=== PATIENT | female | born 1955 | race Caucasian/White ===

== ENCOUNTER 2016-05-12 18:57 | Inpatient (IN) | payer MEDICARE, MEDICAID ==
[2016-05-12] MEDS ORDERED: Ondansetron 4 MG/2 ML SDV IVPUSH ONE (20:06)
[2016-05-12] MEDS ORDERED: Sodium Chloride 0.9% 1,000 ML IV SCH ×2 (20:15→21:45)
[2016-05-12] MEDS ORDERED: Sodium Chloride 0.9% 10 ML Syringe FLUSH ONE (21:44)
[2016-05-12] MEDS ORDERED: Iopamidol 612 MG/ML 150 ML Bottle IV PRN (21:44)
[2016-05-12] MEDS ORDERED: Sodium Chloride 0.9% 80 ML IV SCH (21:45)
--- NOTE | 2016-05-12 23:50 | EDM.PDOC ---
ED HPI GI/ABDOMINAL - General Chief Complaint: Gastrointestinal Problem Stated Complaint: NOT FEELING WELL Time Seen by Provider: 05/12/16 23:00 Source: Reports: Patient, Family History Limitations: Reports: No limitations - History of Present Illness INITIAL COMMENTS - FREE TEXT/NARRATIVE: pt has been vomiting some dark material and she seemes distended in the abdoman. She has a temp of 102. Timing/Duration: Reports: Hour(s):, Getting worse Location: generalized Associated Symptoms (-Female): Reports: fever/chills, nausea/vomiting - Related Data Allergies/ADRs: Allergies Allergy/AdvReac Type Severity Reaction Status Date / Time haloperidol lactate Allergy Unknown unknown Verified 05/12/16 20:05 [From Haldol] simvastatin [From Zocor] Allergy Unknown unknown Verified 05/12/16 20:05 *dust Allergy Unknown Facial Uncoded 05/12/16 20:05 Swelling cats Allergy Unknown Facial Uncoded 05/12/16 20:05 Swelling Home Meds: Home Meds Atenolol [Tenormin] 50 mg PO DAILY 11/25/12 [History] Levothyroxine 112 mcg PO ACBRK 11/25/12 [History] Lovastatin [Mevacor] 40 mg PO BEDTIME 11/25/12 [History] Multivitamin [Multivitamins] 1 tab PO DAILY 11/25/12 [History] Trihexyphenidyl [Artane] 5 mg PO BID 11/25/12 [History] traMADol HCl [Ultram] 50 mg PO Q6H PRN 11/25/12 [History] Acetaminophen [Tylenol] 650 mg PO Q4H PRN 04/12/15 [History] Esomeprazole [NexIUM] 40 mg PO BID 04/12/15 [History] [place] Carbonate 300 mg PO DAILY 04/12/15 [History] Ondansetron [Zofran ODT] 4 mg PO Q4H PRN 04/12/15 [History] buPROPion HCl [Wellbutrin Xl] 300 mg PO DAILY 04/12/15 [History] Oxybutynin 5 mg PO BID 11/02/15 [History] traZODone HCl [Trazodone HCl] 50 mg PO BEDTIME 11/29/15 [History] Warfarin [Coumadin] 7.5 mg PO ASDIRECTED 12/02/15 [History] Warfarin [Coumadin] 10 mg PO ASDIRECTED 12/02/15 [History] Sennosides [Senna] 2 tab PO DAILY 12/14/15 [History] Benztropine Mesylate 1 mg PO BEDTIME 05/12/16 [History] buPROPion [Wellbutrin XL] 150 mg PO DAILY 05/12/16 [History] risperiDONE [Risperdal] 2 mg PO BID 05/12/16 [History] Past Medical History HEENT History: Reports: Hard of hearing, Impaired vision Cardiovascular History: Reports: High cholesterol, Hypertension Respiratory History: Reports: Asthma, PE Gastrointestinal History: Reports: Bowel obstruction, Cholelithiasis, GERD 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: , 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) Other OB/BYN History: uterine cancer 2 years ago, breast biopsy (cyst) Musculoskeletal History: Reports: Arthritis, Osteoarthritis Neurological History: Reports: Seizure, TIA Psychiatric History: Reports: Bipolar, Depression Other Psychiatric History: adjustment disorder Endocrine/Metabolic History: Reports: Hypothyroidism Hematologic History: Reports: Anemia, Blood transfusion(s) Oncologic (Cancer) History: Reports: Uterine Other Oncologic History: endometrial adenocarcinoma Dermatologic History: Reports: Psoriasis - Infectious Disease History Infectious Disease History: Reports: Chicken pox - Past Surgical History GI Surgical History: Reports: Hernia repair/other, Lysis of adhesions, Other ( see below) Other GI Surgeries/Procedures: release of SBO Female Surgical History: Reports: Hysterectomy Oncologic Surgical History: Reports: Biopsy of breast Social & Family History - Family History Family Medical History: Noncontributory - Tobacco Use Smoking Status *Q: Unknown Ever Smoked Years of Tobacco use: 12 Used Tobacco, but Quit: Yes Month Tobacco Last Used: 20 Second Hand Smoke Exposure: No - Caffeine Use Caffeine Use: Reports: Coffee Other Caffeine Use: 3 cans per day - Alcohol Use Days Per Week of Alcohol Use: 0 Number of Drinks Per Day: 1 Total Drinks Per Week: 0 - Recreational Drug Use Recreational Drug Use: No - Living Situation & Occupation Living situation: Reports: assisted living (Memory Care Unit) ED [facility] - Review of Systems Review Of Systems: See Below Constitutional: Reports: fever, chills, weakness HEENT: Reports: No symptoms Respiratory: Reports: No Symptoms Cardiovascular: Reports: No symptoms Endocrine: Reports: no symptoms GI/Abdominal: Reports: Abdominal pain, Distension, Nausea, Vomiting : Reports: no symptoms Musculoskeletal: Reports: no symptoms Skin: Reports: no symptoms ED EXAM, GI/ABD - Physical Exam Exam: See Below Text/Narrative:: Pt arrived with a temp and she has been vomiting some dark colored material. Exam Limited By: Other (Pt is not able to give a good history.) General Appearance: alert, anxious Ears: normal TMs Nose: normal inspection Throat/Mouth: Normal inspection Head: atraumatic Neck: normal inspection Respiratory/Chest: no respiratory distress Cardiovascular: regular rate, rhythm GI/Abdominal: tenderness, distention, other ( abdoman is definitely distended. ) (Female) Exam: Normal external exam Rectal (Female) Exam: Deferred Extremities: normal inspection Neurological: alert, other (pt is normally not able to give any acurate history. She lives in a [place] [facility]. ) Psychiatric: flat affect Course - Vital Signs Last Recorded V/S: Last Vital Signs Temp 37.5 C 05/12/16 22:39 Pulse 57 L 05/12/16 22:39 Resp 16 05/12/16 22:39 BP 153/100 H 05/12/16 22:39 Pulse Ox 99 05/12/16 22:39 - Orders/Labs/Meds Orders: Active Orders 24 hr Category Date Time Status Abdomen Pelvis w Cont [CT] Stat Exams 05/12/16 21:38 Taken Abdomen Series w Chest 1V [CR] Stat Exams 05/12/16 19:57 Taken OCCULT BLOOD, GASTRIC [OP] Stat Lab 05/12/16 21:41 Uncollected Iopamidol [Isovue-300 (61%)] Med 05/12/16 21:44 Active 133 ml IV . DIRECTED PRN Sodium Chloride 0.9% [Normal Saline] 1,000 ml Med 05/12/16 20:15 Active IV ASDIRECTED Sodium Chloride 0.9% [Normal Saline] 1,000 ml Med 05/12/16 21:45 Active IV ASDIRECTED Sodium Chloride 0.9% [Normal Saline] 80 ml Med 05/12/16 21:45 Active IV ASDIRECTED NG [Nasogastric Orogastric Tube Insertion] [OM.PC] Oth 05/12/16 21:40 Ordered Routine Medication Orders Sodium Chloride (Normal Saline) 1,000 mls @ 999 mls/hr IV ASDIRECTED KATIE Last Admin: 05/12/16 20:15 Dose: 999 mls/hr Sodium Chloride (Normal Saline) 1,000 mls @ 500 mls/hr IV ASDIRECTED KATIE Last Admin: 05/12/16 21:52 Dose: 500 mls/hr Sodium Chloride (Normal Saline) 80 mls @ 3.5 mls/sec IV ASDIRECTED KATIE Last Admin: 05/12/16 22:05 Dose: 3.5 mls/sec Acetaminophen 1,000 mg/ Premix 100 mls @ 400 mls/hr IV Q6H PRN PRN Reason: Pain Stop: 05/14/16 00:33 Last Admin: 05/13/16 01:06 Dose: 400 mls/hr Sodium Chloride (Normal Saline) 1,000 mls @ 200 mls/hr IV ASDIRECTED KATIE Last Admin: 05/13/16 00:15 Dose: 200 mls/hr Iopamidol (Isovue-300 (61%)) 133 ml IV . DIRECTED PRN PRN Reason: RADIOLOGY EXAM Stop: 05/13/16 21:45 Last Admin: 05/12/16 22:04 Dose: 132 ml Ondansetron HCl (Zofran) 4 mg IVPUSH Q4H PRN PRN Reason: Nausea/Vomiting Last Admin: 05/13/16 01:05 Dose: 4 mg Labs: Laboratory Tests 05/12/16 05/12/16 05/12/16 Range/Units 19:57 20:03 20:03 WBC 15.8 H (4.5-11.0) K/uL RBC 4.34 (3.30-5.50) M/uL Hgb 13.7 (12.0-15.0) g/dL Hct 41.3 (36.0-48.0) % MCV 95 (80-98) fL MCH 32 H (27-31) pg MCHC 33 (32-36) % Plt Count 287 (150-400) K/uL Neut % (Auto) 84 H (36-66) % Lymph % (Auto) 6 L (24-44) % [place] % (Auto) 10 H (2-6) % Eos % (Auto) 0 L (2-4) % Baso % (Auto) 0 (0-1) % Sodium 142 (140-148) mmol/L Potassium 3.7 (3.6-5.2) mmol/L Chloride 106 (100-108) mmol/L Carbon Dioxide 27 (21-32) mmol/L Anion Gap 9.1 (5.0-14.0) mmol/L BUN 42 H D (7-18) mg/dL Creatinine 1.1 H (0.6-1.0) mg/dL Est Cr Clr Drug Dosing TNP Estimated GFR (MDRD) 51 L (>60) Glucose 111 H (74-106) mg/dL Calcium 8.3 L (8.5-10.1) mg/dL Total Bilirubin 0.5 (0.2-1.0) mg/dL AST 22 (15-37) U/L ALT 22 D (12-78) U/L Alkaline Phosphatase 63 (46-116) U/L C-Reactive Protein 0.12 (0.0-0.3) mg/dL Total Protein 6.3 L (6.4-8.2) g/dL Albumin 3.4 (3.4-5.0) g/dL Globulin 2.9 (2.3-3.5) g/dL Albumin/Globulin Ratio 1.2 (1.2-2.2) Meds: Medications Generic Name Dose Route Start Last Admin Trade Name Freq PRN Reason Stop Dose Admin Sodium Chloride 1,000 mls @ 999 mls/hr 05/12/16 20:15 05/12/16 20:15 Normal Saline IV 999 mls/hr ASDIRECTED KATIE Administration Sodium Chloride 1,000 mls @ 500 mls/hr 05/12/16 21:45 05/12/16 21:52 Normal Saline IV 500 mls/hr ASDIRECTED KATIE Administration Sodium Chloride 80 mls @ 3.5 mls/sec 05/12/16 21:45 05/12/16 22:05 Normal Saline IV 3.5 mls/sec ASDIRECTED KATIE Administration Acetaminophen 1,000 mg/ Premix 100 mls @ 400 mls/hr 05/13/16 00:32 05/13/16 01:06 IV 05/14/16 00:33 400 mls/hr Q6H PRN Administration Pain Sodium Chloride 1,000 mls @ 200 mls/hr 05/13/16 00:45 05/13/16 00:15 Normal Saline IV 200 mls/hr ASDIRECTED KATIE Administration Iopamidol 133 ml 05/12/16 21:44 05/12/16 22:04 Isovue-300 (61%) IV 05/13/16 21:45 132 ml . DIRECTED PRN Administration RADIOLOGY EXAM Ondansetron HCl 4 mg 05/13/16 00:32 05/13/16 01:05 Zofran IVPUSH 4 mg Q4H PRN Administration Nausea/Vomiting Discontinued Medications Generic Name Dose Route Start Last Admin Trade Name Sadie PRN Reason Stop Dose Admin Ondansetron HCl 4 mg 05/12/16 20:06 05/12/16 20:41 Zofran IVPUSH 05/12/16 20:07 4 mg ONETIME ONE Administration Sodium Chloride 10 ml 05/12/16 21:44 05/12/16 22:04 Saline Flush FLUSH 05/12/16 21:45 10 ml ONETIME ONE Administration - Re-Assessments/Exams Free Text/Narrative Re-Assessment/Exam: 05/13/16 02:36 cat scan of the abdomn showed a small bowel obstruction Departure - Departure Time of Disposition: 23:51 Disposition: Home, Self-Care 01 Condition: fair Clinical Impression: Small bowel obstruction, Dehydration - My Orders Last 24 Hours: My Active Orders 05/12/16 19:57 Abdomen Series w Chest 1V [CR] Stat 05/12/16 20:15 Sodium Chloride 0.9% [Normal Saline] 1,000 ml IV ASDIRECTED 05/12/16 21:38 Abdomen Pelvis w Cont [CT] Stat 05/12/16 21:40 NG [Nasogastric Orogastric Tube Insertion] [OM.PC] Routine 05/12/16 21:41 OCCULT BLOOD, GASTRIC [OP] Stat 05/12/16 21:44 Iopamidol [Isovue-300 (61%)] 133 ml IV . DIRECTED PRN 05/12/16 21:45 Sodium Chloride 0.9% [Normal Saline] 1,000 ml IV ASDIRECTED Sodium Chloride 0.9% [Normal Saline] 80 ml IV ASDIRECTED - Assessment/Plan Last 24 Hours: My Active Orders 05/12/16 19:57 Abdomen Series w Chest 1V [CR] Stat 05/12/16 20:15 Sodium Chloride 0.9% [Normal Saline] 1,000 ml IV ASDIRECTED 05/12/16 21:38 Abdomen Pelvis w Cont [CT] Stat 05/12/16 21:40 NG [Nasogastric Orogastric Tube Insertion] [OM.PC] Routine 05/12/16 21:41 OCCULT BLOOD, GASTRIC [OP] Stat 05/12/16 21:44 Iopamidol [Isovue-300 (61%)] 133 ml IV . DIRECTED PRN 05/12/16 21:45 Sodium Chloride 0.9% [Normal Saline] 1,000 ml IV ASDIRECTED Sodium Chloride 0.9% [Normal Saline] 80 ml IV ASDIRECTED
[2016-05-13] MEDS: Sodium Chloride 0.9% 1,000 ML IV SCH ×4 (00:15→20:02)
[2016-05-13] MEDS ORDERED: Ondansetron 4 MG/2 ML SDV IVPUSH PRN (00:32)
[2016-05-13] MEDS ORDERED: Acetaminophen 1,000 MG in Premix Bag 1 BAG IV PRN (00:32)
--- NOTE | 2016-05-13 10:16 | CR ---
Abdomen Series w Chest 1V HISTORY: Pain COMPARISON: Prior plain films March 19, 2016 FINDINGS: Cardiac size and pulmonary vessels normal. The lungs are clear. Dilated loops of small bowel with multiple air-fluid levels. Surgical clips in the mid abdomen and p erin. IVC filter. No free air seen. Impression: Mid to distal small bowel obstructive process.
--- NOTE | 2016-05-13 10:38 | CR ---
Abdomen 2V AP Flat Upright HISTORY: Follow-up bowel obstruction. COMPARISON: CT scan 05/12/2016. FINDINGS: IVC filter. Bowel gas pattern is nonspecific no definite mechanical bowel obstruction seen . Scattered stool throughout the colon. Postoperative surgical clips present. No free air seen.
--- NOTE | 2016-05-13 15:49 | PCM.HP ---
H&P History of Present Illness - General Date of Service: 05/13/16 Admit Problem/Dx: Admission Diagnosis/Problem Admission Diagnosis/Problem Small bowel obstruction Source of Information: Patient History Limitations: Reports: Altered mental status - History of Present Illness Onset of Symptoms: Reports: today Symptom Onset Date: 05/12/16 Location: Reports: abdomen Severity: mild Improves with: Reports: None Worsens with: Reports: None Associated Symptoms: Reports: fever/chills, nausea/vomiting abdomen Pain Score (Numeric/FACES): 2 - Related Data Allergies/Adverse Reactions: Allergies Allergy/AdvReac Type Severity Reaction Status Date / Time haloperidol lactate Allergy Unknown unknown Verified 05/12/16 20:05 [From Haldol] simvastatin [From Zocor] Allergy Unknown unknown Verified 05/12/16 20:05 *dust Allergy Unknown Facial Uncoded 05/12/16 20:05 Swelling cats Allergy Unknown Facial Uncoded 05/12/16 20:05 Swelling Home Medications: Home Meds Atenolol [Tenormin] 50 mg PO DAILY 11/25/12 [History] Levothyroxine 112 mcg PO ACBRK 11/25/12 [History] Lovastatin [Mevacor] 40 mg PO BEDTIME 11/25/12 [History] Multivitamin [Multivitamins] 1 tab PO DAILY 11/25/12 [History] Trihexyphenidyl [Artane] 5 mg PO BID 11/25/12 [History] traMADol HCl [Ultram] 50 mg PO Q6H PRN 11/25/12 [History] Acetaminophen [Tylenol] 650 mg PO Q4H PRN 04/12/15 [History] Esomeprazole [NexIUM] 40 mg PO BID 04/12/15 [History] [place] Carbonate 300 mg PO DAILY 04/12/15 [History] Ondansetron [Zofran ODT] 4 mg PO Q4H PRN 04/12/15 [History] buPROPion HCl [Wellbutrin Xl] 300 mg PO DAILY 04/12/15 [History] Oxybutynin 5 mg PO BID 11/02/15 [History] traZODone HCl [Trazodone HCl] 50 mg PO BEDTIME 11/29/15 [History] Warfarin [Coumadin] 7.5 mg PO ASDIRECTED 12/02/15 [History] Warfarin [Coumadin] 10 mg PO ASDIRECTED 12/02/15 [History] Sennosides [Senna] 2 tab PO DAILY 12/14/15 [History] Benztropine Mesylate 1 mg PO BEDTIME 05/12/16 [History] buPROPion [Wellbutrin XL] 150 mg PO DAILY 05/12/16 [History] risperiDONE [Risperdal] 2 mg PO BID 05/12/16 [History] Past Medical History HEENT History: Reports: Hard of hearing, Impaired vision Cardiovascular History: Reports: High cholesterol, Hypertension Respiratory History: Reports: Asthma, PE Gastrointestinal History: Reports: Bowel obstruction, Cholelithiasis, GERD 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: , 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) Other OB/BYN History: uterine cancer 2 years ago, breast biopsy (cyst) Musculoskeletal History: Reports: Arthritis, Osteoarthritis Neurological History: Reports: Seizure, TIA Psychiatric History: Reports: Bipolar, Depression Other Psychiatric History: adjustment disorder Endocrine/Metabolic History: Reports: Hypothyroidism Hematologic History: Reports: Anemia, Blood transfusion(s) Oncologic (Cancer) History: Reports: Uterine Other Oncologic History: endometrial adenocarcinoma Dermatologic History: Reports: Psoriasis - Infectious Disease History Infectious Disease History: Reports: Chicken pox - Past Surgical History GI Surgical History: Reports: Hernia repair/other, Lysis of adhesions, Other ( see below) Other GI Surgeries/Procedures: release of SBO Female Surgical History: Reports: Hysterectomy Oncologic Surgical History: Reports: Biopsy of breast Social & Family History - Family History Family Medical History: Noncontributory - Tobacco Use Smoking Status *Q: Unknown Ever Smoked Years of Tobacco use: 12 Used Tobacco, but Quit: Yes Month Tobacco Last Used: 20 Second Hand Smoke Exposure: No - Caffeine Use Caffeine Use: Reports: Coffee Other Caffeine Use: 3 cans per day - Alcohol Use Days Per Week of Alcohol Use: 0 Number of Drinks Per Day: 1 Total Drinks Per Week: 0 - Recreational Drug Use Recreational Drug Use: No - Living Situation & Occupation Living situation: Reports: assisted living (Memory Care Unit) H&P Review of Systems - Review of Systems: Review Of Systems: See Below Free Text/Narrative: Dagmar was admitted yesterday for abdominal pain and emesis. Today she states she is feeling better. Difficult to get a good history. General: Reports: no symptoms HEENT: Reports: no symptoms Pulmonary: Reports: No Symptoms Cardiovascular: Reports: no symptoms Gastrointestinal: Reports: Abdominal pain, Decreased appetite, Nausea Genitourinary: Reports: no symptoms Musculoskeletal: Reports: no symptoms Skin: Reports: no symptoms Psychiatric: Reports: mood lability Neurological: Reports: Other (not a good historian) Hematologic/Lymphatic: Reports: no symptoms Immunologic: Reports: no symptoms Exam - Exam Exam: See Below - Vital Signs Vital Signs: Last Vital Signs Temp 99.3 F 05/13/16 12:12 Pulse 92 05/13/16 12:12 Resp 20 05/13/16 12:12 BP 155/92 H 05/13/16 12:12 Pulse Ox 97 05/13/16 12:12 Weight: 199 lb 4.766 oz - Exam Quality Assessment: DVT prophylaxis General: cooperative HEENT: PERRLA Neck: supple, trachea midline Lungs: Clear to auscultation, Normal respiratory effort Cardiovascular: regular rate, regular rhythm Abdomen: normal bowel sounds, other ( non tender) (Female) Exam: Deferred Rectal (Female) Exam: Deferred Back Exam: normal inspection Extremities: normal inspection Skin: warm, dry, intact Neurological: cranial nerves intact Neuro Extensive - Mental Status: inattentive (poor historian), other (some confusion) Neuro Extensive - Motor, Sensory, Reflexes: CN II-XII intact Psychiatric: labile mood, other (confused) - Patient Data Lab Results last 24 hrs: Laboratory Results - last 24 hr 05/12/16 Range/Units 23:43 Urine Color Yellow Urine Appearance Cloudy Urine pH 7.0 (4.5-8.0) Ur Specific [place] 1.010 (1.008-1.030) Urine Protein Negative (NEGATIVE) mg/dL Urine Glucose (UA) Normal (NEGATIVE) mg/dL Urine Ketones Negative (NEGATIVE) mg/dL Urine Occult Blood Negative (NEGATIVE) Urine Nitrite Negative (NEGATIVE) Urine Bilirubin Negative (NEGATIVE) Urine Urobilinogen Normal (NORMAL) mg/dL Ur Leukocyte Esterase Small (NEGATIVE) Urine RBC 0-5 (0-5) Urine WBC 0-5 (0-5) Ur Epithelial Cells Few Amorphous Sediment Not seen Urine Bacteria Many Urine Mucus Not seen Result Diagrams: 05/12/16 20:03 05/12/16 20:03 *Q Meaningful Use (ADM) - VTE *Q VTE Criteria *Q: - Stroke *Q Stroke Criteria *Q: - AMI *Q AMI Criteria *Q: Problem List Initiated/Reviewed/Updated: Yes Orders Last 24hrs: Active Orders 24 hr Category Date Time Status Admission Status [Patient Status] [ADT] Routine ADT 05/12/16 23:40 Active Gastrointestinal Tube Mgmt [RC] ASDIRECTED Care 05/13/16 00:37 Hold Up to Chair [RC] ASDIRECTED Care 05/13/16 00:33 Active NPO [Nothing Per Oral Diet] [DIET] Diet 05/13/16 Breakfast Active CULTURE URINE [RM] Routine Lab 05/13/16 00:01 Received Acetaminophen [Ofirmev] 1,000 mg Med 05/13/16 00:32 Active Premix Bag 1 bag IV Q6H Ondansetron [Zofran] Med 05/13/16 00:32 Active 4 mg IVPUSH Q4H PRN Sodium Chloride 0.9% [Normal Saline] 1,000 ml Med 05/13/16 00:45 Active IV ASDIRECTED Nasogastric Orogastric Tube Insertion [OM.PC] Routine Oth 05/13/16 00:35 Ordered SCD [Sequential Compression Device] [OM.PC] Routine Oth 05/13/16 12:00 Ordered Medication Orders Acetaminophen 1,000 mg/ Premix 100 mls @ 400 mls/hr IV Q6H PRN PRN Reason: Pain Stop: 05/14/16 00:33 Last Admin: 05/13/16 01:06 Dose: 400 mls/hr Sodium Chloride (Normal Saline) 1,000 mls @ 200 mls/hr IV ASDIRECTED [facility] Last Admin: 05/13/16 15:05 Dose: 200 mls/hr Infusion: 05/13/16 10:22 Dose: 200 mls/hr Admin: 05/13/16 05:22 Dose: 200 mls/hr Infusion: 05/13/16 05:15 Dose: 200 mls/hr Admin: 05/13/16 00:15 Dose: 200 mls/hr Ondansetron HCl (Zofran) 4 mg IVPUSH Q4H PRN PRN Reason: Nausea/Vomiting Last Admin: 05/13/16 01:05 Dose: 4 mg Assessment/Plan Comment:: Assessment: Partial Small Bowel Obstruction Plan: See copy of orders Estimated hospitalization 2 nights and 3 days. Miri Arreguin
[2016-05-13] MEDS: Levofloxacin/Dextrose 5%-Water 500 MG in Premix Bag 1 BAG IV SCH (20:07)
[2016-05-13] MEDS: risperiDONE 1 MG Tab PO SCH (21:13)
[2016-05-13] MEDS: Benztropine 1 MG Tab PO SCH (21:14)
[2016-05-13] MEDS: traZODone 50 MG Tab PO SCH (21:14)
[2016-05-14] MEDS: Sodium Chloride 0.9% 1,000 ML IV SCH (02:27)
[2016-05-14] MEDS ORDERED: Acetaminophen 325 MG Tab PO PRN (07:10)
[2016-05-14] MEDS: Levothyroxine 112 MCG Tab PO SCH (07:59)
[2016-05-14] MEDS: Pantoprazole 40 MG Tab.CR PO SCH ×2 (07:59→17:56)
[2016-05-14] MEDS: risperiDONE 1 MG Tab PO SCH ×2 (08:14→21:20)
[2016-05-14] MEDS: Oxybutynin 5 MG Tab PO SCH ×2 (08:14→21:20)
[2016-05-14] MEDS: Atenolol 50 MG Tab PO SCH (08:15)
[2016-05-14] MEDS: Multivitamins with Iron/Calcium/Folic Acid/Minerals Tab PO SCH (08:20)
[2016-05-14] MEDS: Sennosides 8.6 MG Tab PO SCH (08:23)
[2016-05-14] MEDS ORDERED: Dextrose 5%-Lactated Ringers 1,000 ML IV SCH (08:45)
--- NOTE | 2016-05-14 08:49 | PCM.CONSN ---
- General Info Date of Service: 05/14/16 Functional Status: Reports: pain controlled - Review of Systems General: Reports: No Symptoms HEENT: Reports: no symptoms Pulmonary: Reports: no symptoms Cardiovascular: Reports: No Symptoms Gastrointestinal: Reports: Abdominal pain, Constipation Genitourinary: Reports: no symptoms Musculoskeletal: Reports: no symptoms Skin: Reports: no symptoms Neurological: Reports: Tremors (in upper extremities) Psychiatric: Reports: anxiety, agitation - Patient Data Vitals - most recent: Last Vital Signs Temp 98.6 F 05/14/16 04:19 Pulse 96 05/14/16 08:15 Resp 20 05/14/16 04:19 BP 166/87 H 05/14/16 08:15 Pulse Ox 96 05/14/16 04:19 Weight - most recent: 199 lb 4.766 oz I&O - last 24 hours: Intake & Output 05/13/16 05/14/16 05/14/16 22:59 06:59 14:59 Intake Total 2430 2818 Output Total 750 4300 Balance 1680 -1482 Pardeep Results last 24 hrs: Microbiology 05/13/16 00:01 Urine Culture - Preliminary Urine, Clean Catch Med Orders - Current: Current Medications Acetaminophen (Tylenol) 650 mg PO Q4H PRN PRN Reason: Pain Atenolol (Tenormin) 50 mg PO DAILY [facility] Last Admin: 05/14/16 08:15 Dose: 50 mg Benztropine Mesylate (Cogentin) 1 mg PO BEDTIME [facility] Last Admin: 05/13/16 21:14 Dose: 1 mg Bupropion HCl (Wellbutrin) 225 mg PO BID [facility] Last Admin: 05/14/16 08:12 Dose: 225 mg Levofloxacin/Dextrose 500 mg/ (Premix) 100 mls @ 100 mls/hr IV Q24H [facility] Last Admin: 05/13/16 20:07 Dose: 100 mls/hr Dextrose/Lactated Ringer's (Dextrose 5%-Lactated Ringers) 1,000 mls @ 100 mls/ hr IV ASDIRECTED [facility] Levothyroxine Sodium (Levothyroxine) 112 mcg PO ACBRK [facility] Last Admin: 05/14/16 07:59 Dose: 112 mcg Ford Carbonate (Ford Carbonate) 300 mg PO DAILY [facility] Last Admin: 05/14/16 08:12 Dose: 300 mg Lovastatin (Mevacor) 40 mg PO BEDTIME [facility] Multivitamins/Minerals (Thera M Plus) 1 tab PO DAILY [facility] Last Admin: 05/14/16 08:20 Dose: 1 tab Ondansetron HCl (Zofran) 4 mg IVPUSH Q4H PRN PRN Reason: Nausea/Vomiting Last Admin: 05/13/16 01:05 Dose: 4 mg Oxybutynin Chloride (Oxybutynin) 5 mg PO BID [facility] Last Admin: 05/14/16 08:14 Dose: 5 mg Pantoprazole Sodium (Protonix) 40 mg PO BIDAC [facility] Last Admin: 05/14/16 07:59 Dose: 40 mg Polyethylene Glycol (Miralax) 119 gm PO ONETIME ONE Stop: 05/14/16 09:01 Last Admin: 05/14/16 08:29 Dose: 119 gm Risperidone (Risperidal) 2 mg PO BID [facility] Last Admin: 05/14/16 08:14 Dose: 2 mg Senna (Senna) 17.2 mg PO DAILY [facility] Last Admin: 05/14/16 08:23 Dose: 17.2 mg Trazodone HCl (Trazodone) 50 mg PO BEDTIME [facility] Last Admin: 05/13/16 21:14 Dose: 50 mg Trihexyphenidyl HCl (Artane) 5 mg PO BID [facility] Last Admin: 05/13/16 21:13 Dose: 5 mg Warfarin Sodium (Coumadin) 7.5 mg PO MoWeFr@1300 [facility] Warfarin Sodium (Coumadin) 10 mg PO SuTuThSa@1300 [facility] Discontinued Medications Bupropion HCl (Wellbutrin Xl) 300 mg PO DAILY [facility] Sodium Chloride (Normal Saline) 1,000 mls @ 999 mls/hr IV ASDIRECTED [facility] Last Admin: 05/12/16 20:15 Dose: 999 mls/hr Sodium Chloride (Normal Saline) 1,000 mls @ 500 mls/hr IV ASDIRECTED [facility] Last Admin: 05/12/16 21:52 Dose: 500 mls/hr Sodium Chloride (Normal Saline) 80 mls @ 3.5 mls/sec IV ASDIRECTED [facility] Last Admin: 05/12/16 22:05 Dose: 3.5 mls/sec Acetaminophen 1,000 mg/ Premix 100 mls @ 400 mls/hr IV Q6H PRN PRN Reason: Pain Stop: 05/14/16 00:33 Last Admin: 05/13/16 01:06 Dose: 400 mls/hr Sodium Chloride (Normal Saline) 1,000 mls @ 200 mls/hr IV ASDIRECTED [facility] Last Admin: 05/14/16 02:27 Dose: 200 mls/hr Iopamidol (Isovue-300 (61%)) 133 ml IV . DIRECTED PRN PRN Reason: RADIOLOGY EXAM Stop: 05/13/16 21:45 Last Admin: 05/12/16 22:04 Dose: 132 ml Ondansetron HCl (Zofran) 4 mg IVPUSH ONETIME ONE Stop: 05/12/16 20:07 Last Admin: 05/12/16 20:41 Dose: 4 mg Sodium Chloride (Saline Flush) 10 ml FLUSH ONETIME ONE Stop: 05/12/16 21:45 Last Admin: 05/12/16 22:04 Dose: 10 ml Trihexyphenidyl HCl (Artane) 5 mg PO BID [facility] - Exam General: mild distress, other (pleasant and talkative. Disoriented) Neck: supple Lungs: Clear to auscultation, Normal respiratory effort Cardiovascular: Regular Rate, Regular Rhythm Abdomen: soft, tenderness (minimal ), distension (slight ) (Female) Exam: Deferred Back Exam: normal inspection Extremities: no edema Skin: warm, dry, intact Neurological: normal gait, other (upper extremity tremors.) Psy/Mental Status: anxious, agitated Consult PN Assessment/Plan POD#: 0 Procedures: Procedures AGENT NOS ASSAY W/OPTIC (04/09/14) AIRWAY INHALATION TREATMENT (03/03/14) ASSAY OF AMMONIA (12/03/12) ASSAY OF AMYLASE (03/17/16) ASSAY OF LACTIC ACID (11/29/15) ASSAY OF LIPASE (11/29/15) ASSAY OF LITHIUM (03/17/16) ASSAY OF MAGNESIUM (03/17/16) ASSAY OF PHOSPHORUS (11/21/15) ASSAY OF TROPONIN QUANT (04/12/15) ASSAY THYROID STIM HORMONE (03/17/16) BLOOD CULTURE FOR BACTERIA (03/14/14) BLOOD TRANSFUSION SERVICE (03/03/14) BLOOD TYPING SEROLOGIC ABO (03/03/14) BLOOD TYPING SEROLOGIC RH(D) (03/03/14) C DIFF AMPLIFIED PROBE (04/12/15) C-REACTIVE PROTEIN (11/21/15) CHEST X-RAY 1 VIEW FRONTAL (03/03/14) CLOSTRIDIUM AG IA (04/21/14) COMP SCREEN MAMMOGRAM ADD-ON (12/19/15) COMPATIBILITY TEST ANTIGLOB (03/03/14) COMPATIBILITY TEST SPIN (03/03/14) COMPLETE CBC AUTOMATED (12/14/15) COMPLETE CBC W/AUTO DIFF WBC (03/17/16) COMPREHEN METABOLIC PANEL (03/17/16) COMPUTER DX MAMMOGRAM ADD-ON (08/25/13) CT ABD & PELV W/CONTRAST (11/29/15) CT ABD & PELVIS W/O CONTRAST (03/17/16) CT HEAD/BRAIN W/O DYE (03/03/14) CULTURE AEROBIC IDENTIFY (03/14/14) CULTURE OTHR SPECIMN AEROBIC (04/21/14) DRAIN/INJ JOINT/BURSA W/O US (11/02/15) ECHO EXAM OF ABDOMEN (03/03/14) ECHO GUIDE FOR BIOPSY (04/21/14) ELECTROCARDIOGRAM REPORT (03/03/14) ELECTROCARDIOGRAM TRACING (03/03/14) EMERGENCY DEPT VISIT (03/17/16) EMERGENCY DEPT VISIT (02/16/16) EMERGENCY DEPT VISIT (11/29/15) EMERGENCY DEPT VISIT (04/12/15) EMERGENCY DEPT VISIT (04/12/15) EMERGENCY DEPT VISIT (04/04/14) EMERGENCY DEPT VISIT (04/04/14) EMERGENCY DEPT VISIT (04/01/14) EMERGENCY DEPT VISIT (04/01/14) EMERGENCY DEPT VISIT (03/14/14) EMERGENCY DEPT VISIT (03/03/14) EMERGENCY DEPT VISIT (03/03/14) EMERGENCY DEPT VISIT (12/03/12) EMERGENCY DEPT VISIT (12/03/12) EMERGENCY DEPT VISIT (11/25/12) EMERGENCY DEPT VISIT (11/25/12) GLUCOSE BLOOD TEST (04/12/15) HEMOGLOBIN (04/15/14) HEPATOBIL SYST IMAGE W/DRUG (12/28/15) HYDRATE IV INFUSION ADD-ON (03/17/16) INSERT TEMP BLADDER CATH (04/09/14) LEUKOCYTE ASSESSMENT FECAL (04/09/14) MEASURE BLOOD OXYGEN LEVEL (04/15/14) METABOLIC PANEL TOTAL CA (03/17/16) MICROBE SUSCEPTIBLE PARDEEP (11/29/15) NEEDLE LOCALIZATION BY XRAY (11/02/15) OCCULT BLD FECES 1-3 TESTS (03/17/16) PPSV23 VACC 2 YRS+ SUBQ/IM (04/12/15) PROTHROMBIN TIME (03/17/16) RBC ANTIBODY SCREEN (03/03/14) RBC SED RATE NONAUTOMATED (11/29/15) ROUTINE VENIPUNCTURE (03/17/16) SMEAR GRAM STAIN (04/21/14) STOOL CULTR AEROBIC BACT EA (04/09/14) THER/PROPH/DIAG INJ IV PUSH (03/17/16) THER/PROPH/DIAG INJ SC/IM (03/17/16) THROMBOPLASTIN TIME PARTIAL (04/21/14) TX GASTRO INTUB W/ASP (11/21/15) TX/PRO/DX INJ NEW DRUG ADDON (11/29/15) TX/PRO/DX INJ SAME DRUG KENO WRITER / RUNNER (03/03/14) URINALYSIS AUTO W/SCOPE (03/17/16) URINE BACTERIA CULTURE (11/29/15) URINE CULTURE/COLONY COUNT (11/29/15) US EXAM BREAST(S) (02/01/14) US URINE CAPACITY MEASURE (03/03/14) X-RAY EXAM OF ABDOMEN (03/17/16) X-RAY EXAM OF ABDOMEN (04/15/14) X-RAY EXAM OF ABDOMEN (04/09/14) X-RAY EXAM OF ABDOMEN (03/03/14) X-RAY EXAM SERIES ABDOMEN (03/17/16) X-RAY UPPER GI DELAY W/O KUB (04/09/14) (1) Small bowel obstruction SNOMED Code(s): 984660106 Code(s): K56.69 - OTHER INTESTINAL OBSTRUCTION Current Visit: Yes (2) Dehydration SNOMED Code(s): 40028294 Code(s): E86.0 - DEHYDRATION Current Visit: Yes Problem List Initiated/Reviewed/Updated: Yes My Orders last 24 hours: My Active Orders 05/14/16 07:10 Acetaminophen [Tylenol] 650 mg PO Q4H PRN 05/14/16 07:30 Levothyroxine 112 mcg PO ACBRK Pantoprazole [Protonix] 40 mg PO BIDAC 05/14/16 08:45 Dextrose 5%-Lactated Ringers @ 100 MLS/HR(1,000ml) Dextrose 5%-Lactated Ringers 1,000 ml IV ASDIRECTED 05/14/16 09:00 Atenolol [Tenormin] 50 mg PO DAILY Multivitamins w-Iron/Ca/FA/Min [Thera M Plus] 1 tab PO DAILY Oxybutynin 5 mg PO BID Polyethylene Glycol 3350 [MiraLAX] 119 gm PO ONETIME ONE Sennosides [Senna] 17.2 mg PO DAILY buPROPion [Wellbutrin] 225 mg PO BID 05/14/16 13:00 Warfarin [Coumadin] 10 mg PO SuTuThSa@1300 05/14/16 21:00 Lovastatin [Mevacor] 40 mg PO BEDTIME 05/15/16 13:00 Warfarin [Coumadin] 7.5 mg PO MoWeFr@1300 Continue good pulmonary functions Recheck in [facility]
[2016-05-14] MEDS ORDERED: Polyethylene Glycol 3350 Powder 119 GM Bottle PO ONE (09:00)
[2016-05-14] MEDS ORDERED: RISPERIDONE 2 MG PO SCH (09:00)
[2016-05-14] MEDS ORDERED: buPROPion 150 MG Tab.ER PO SCH (09:00)
--- NOTE | 2016-05-14 10:06 | CR ---
Abdomen 2V AP Flat Upright HISTORY: SMALL bowel obstruction. COMPARISON: Prior plain films 05/13/2016. FINDINGS: Bowel gas pattern is nonspecific, there is some scattered stool throughout nondilated colo n. Air-fluid level on the first film just above the right iliac crest within small bowel that does n ot appear to be dilated. Inferior vena cava filter. Postoperative changes in the pelvis. No free air seen. Impression: Nonobstructive bowel gas pattern.
[2016-05-14] MEDS ORDERED: Warfarin 5 MG Tab PO SCH (13:00)
[2016-05-14] MEDS ORDERED: traZODone 50 MG Tab PO SCH (21:00)
[2016-05-14] MEDS ORDERED: BENZTROPINE MESYLATE 1 MG PO SCH (21:00)
[2016-05-14] MEDS: Levofloxacin/Dextrose 5%-Water 500 MG in Premix Bag 1 BAG IV SCH (21:16)
[2016-05-14] MEDS: Benztropine 1 MG Tab PO SCH (21:21)
[2016-05-14] MEDS: traZODone 50 MG Tab PO SCH (21:21)
[2016-05-15] MEDS: risperiDONE 1 MG Tab PO SCH (08:19)
[2016-05-15] MEDS: Atenolol 50 MG Tab PO SCH (08:20)
[2016-05-15] MEDS: Pantoprazole 40 MG Tab.CR PO SCH (08:22)
[2016-05-15] MEDS: Levothyroxine 112 MCG Tab PO SCH (08:22)
[2016-05-15] MEDS: Oxybutynin 5 MG Tab PO SCH (08:22)
[2016-05-15] MEDS: Sennosides 8.6 MG Tab PO SCH (08:22)
[2016-05-15] MEDS: Multivitamins with Iron/Calcium/Folic Acid/Minerals Tab PO SCH (08:23)
[2016-05-15 11:29] VITALS: BP 168/107
[2016-05-15] MEDS ORDERED: Warfarin 2.5 MG Tab PO SCH (13:00)
--- NOTE | 2016-05-16 01:01 | DISCH ---
ADMISSION DIAGNOSES: 1. Small bowel obstruction. 2. Dehydration. 3. Altered mental status. 4. Hypercholesterolemia. 5. Hypertension. 6. Asthma. 7. History of pulmonary embolism. 8. Uterine cancer 2015. 9. Seizure disorder. 10.History of transient ischemic attack. 11.Bipolar depression, adjustment disorder, and altered mental status. 12.Hypothyroidism. 13.Endometrial adenocarcinoma. DISCHARGE DIAGNOSIS: Small-bowel obstruction resolved with dehydration corrected. HISTORY: Dagmar Perez is a 60-year-old female who was admitted through the emergency room for vomiting, distended abdomen, and temp of 102. She lives in a intermediate, so history was difficult to obtain. CT of the abdomen did show small bowel obstruction and her lab work showed she was dehydrated. She was admitted on 05/12/2016. On 05/13/2016, she continued to get adequate fluids through IV, nausea was treated with Zofran, and her abdominal film did continue to improve. On 05/15/2016, she was given MiraLAX 119 g and she did start having bowel movements and her abdominal distention resolved. She was able to take in 2165 mL of fluid and she was ready to be discharged to intermediate with resolution of small bowel obstruction. REVIEW OF SYSTEMS: Difficult to get accurate assessment due to altered mental status. HEENT: Wears corrective lenses. No upper respiratory infection signs and symptoms. Denies any ear pain. NECK: No lymphadenopathy, tenderness. CHEST: Denies chest pain, shortness of breath, fast or irregular heart beat. LUNGS: No cough. ABDOMEN: Having normal colored stools, has had 5 in the past 24 hours. No nausea or vomiting. Appetite has been good. : Denies any UTI signs and symptoms. No hesitancy, frequency, dysuria, or hematuria. EXTREMITIES: No joint pain or swelling. NEURO: No headaches, dizziness, loss of coordination. SKIN: Without rash. PSYCHIATRIC: Altered mental status, but happy and mood appropriate. PHYSICAL EXAMINATION: GENERAL: Dagmar Perez is a 60-year-old female. VITAL SIGNS: Height is 5 feet 8.9 inches, weight is 199 pounds. TPR is 98.4, 90, 18. Blood pressure 166/92. HEENT: Negative. NECK: Supple. HEART: Regular rate and rhythm. LUNGS: Clear. ABDOMEN: Soft, nontender. GENITOURINARY: Deferred. EXTREMITIES: Negative. Full range of motion. NEURO: Cranial nerves 2 through 12 intact. SKIN: Without rash. PSYCHIATRIC: Mood and affect appropriate. DISPOSITION: Discharged to home. CONDITION: Stable and improving. FOLLOWUP APPOINTMENT: With Miri Sterling PA-C, at [facility] on 05/29/2016 at 10 a.m. MEDICATIONS: Senna Plus 2 tablets oral daily, #100, 4 refills, Wellbutrin bupropion 225 mg oral twice daily to use 75 mg immediate tablets, #180 and 11 refills for better absorption, Tylenol 650 mg oral every 4 hours p.r.n. pain, Tenormin, atenolol 50 mg oral daily, Nexium 40 mg oral twice daily, levothyroxine 112 mcg oral before breakfast, Mevacor lovastatin 40 mg oral at bedtime, multivitamin one tablet daily, Zofran ODT 4 mg sublingual every 4 hours, oxybutynin 5 mg oral twice daily, Artane trihexyphenidyl 5 mg oral twice daily, Coumadin 10 mg oral as directed, Friday, Friday, , and Friday and warfarin Coumadin 7.5 mg oral as directed Friday, Friday, and Friday, Risperdal 2 mg oral twice daily, tramadol 50 mg oral every 6 hours p.r.n. pain, trazodone 50 mg oral at bedtime, lithium carbonate 300 mg oral daily. DIET AFTER DISCHARGE: Soft GI diet, low residue, low-fiber, drink 8 to 10 glasses of water a day. ACTIVITY: As tolerated. Notify provider if any fever, increased pain, nausea, or vomiting. SPECIAL INSTRUCTION: The Wellbutrin was switched to immediate release for better absorption.
== END 2016-05-15 14:00 | DRG 390 ==
LOC: JP.ED 18:57 → JP.ICU 23:40 → JP.2SS 05-14 11:10 → JP.MS 05-14 15:57
PROVIDERS: ADMIT Surgery; ATTEND Surgery
DX: K56.60 Unspecified intestinal obstruction (principal); E86.0 Dehydration; F31.9 Bipolar disorder, unspecified; I10 Essential (primary) hypertension; E03.9 Hypothyroidism, unspecified; Z87.891 Personal history of nicotine dependence; Z86.711 Personal history of pulmonary embolism; R11.0 Nausea; R50.9 Fever, unspecified; R14.0 Abdominal distension (gaseous); K59.00 Constipation, unspecified; Z86.73 Personal history of transient ischemic attack (TIA), and cerebral infarction without residual deficits; M19.90 Unspecified osteoarthritis, unspecified site; E78.00 Pure hypercholesterolemia, unspecified; H91.90 Unspecified hearing loss, unspecified ear; H54.7 Unspecified visual loss; R25.1 Tremor, unspecified; Z85.42 Personal history of malignant neoplasm of other parts of uterus; Z79.01 Long term (current) use of anticoagulants; Z88.8 Allergy status to other drugs, medicaments and biological substances; Z91.048 Other nonmedicinal substance allergy status; Z91.09 Other allergy status, other than to drugs and biological substances; G40.909 Epilepsy, unspecified, not intractable, without status epilepticus
CPT/HCPCS: 36415; 74022 ×2; 74177; 80053; 85025; 86140; 96361; 96374; 99285; J2405; J7030; J7040 ×2; J7050; 74020; 74020-26; 81001; 87086; 87088; 87186; 99284; A9270-GY; J0131; J1956; J7042

== ENCOUNTER 2016-09-21 16:30 | Emergency (ER) | payer MEDICARE, MEDICAID ==
[2016-09-21 18:09] VITALS: BP 124/66
--- NOTE | 2016-09-21 19:44 | EDM.PDOC ---
[id number] Complaint: VOMITING BOWL PROBLEMS Time Seen by Provider: 09/21/16 17:17 Source of Information: Reports: Patient, [facility] Records, Other - History of Present Illness INITIAL COMMENTS - FREE TEXT/NARRATIVE: 61 yo female presents to ER with healthcare analyst. She states that her ABD has been increasingly extended. nursing note states pt has been inducing vomiting however when asked pt denies vomiting. Pt has lost 100 pounds in the last 6 months. Tonight denies pain in ABD, dysuria, or nausea. - Related Data Allergies Allergy/AdvReac Type Severity Reaction Status Date / Time haloperidol lactate Allergy Unknown unknown Verified 09/21/16 17:05 [From Haldol] simvastatin [From Zocor] Allergy Unknown unknown Verified 09/21/16 17:05 *dust Allergy Unknown Facial Uncoded 09/21/16 17:05 Swelling cats Allergy Unknown Facial Uncoded 09/21/16 17:05 Swelling Home Meds: Home Meds Atenolol [Tenormin] 50 mg PO DAILY 11/25/12 [History] Lovastatin [Mevacor] 40 mg PO BEDTIME 11/25/12 [History] Multivitamin [Multivitamins] 1 tab PO DAILY 11/25/12 [History] Trihexyphenidyl [Artane] 5 mg PO BID 11/25/12 [History] traMADol HCl [Ultram] 50 mg PO Q6H PRN 11/25/12 [History] Acetaminophen [Tylenol] 650 mg PO Q4H PRN 04/12/15 [History] Esomeprazole [NexIUM] 40 mg PO BID 04/12/15 [History] Ondansetron [Zofran ODT] 4 mg PO Q4H PRN 04/12/15 [History] Oxybutynin 5 mg PO BID 11/02/15 [History] traZODone HCl [Trazodone HCl] 50 mg PO BEDTIME 11/29/15 [History] Warfarin [Coumadin] 7.5 mg PO ASDIRECTED 12/02/15 [History] Warfarin [Coumadin] 10 mg PO ASDIRECTED 12/02/15 [History] [place] Carbonate 300 mg PO DAILY cap 05/15/16 [Rx] Bisacodyl [Dulcolax] 10 mg RECTAL ASDIRECTED 09/21/16 [History] Fluocinolone Acetonide [Synalar 0.01% Top Soln] 09/21/16 [History] Levothyroxine 112 mcg PO DAILY 09/21/16 [History] Melatonin 5 mg PO BEDTIME 09/21/16 [History] Sennosides [Senna] 2 mg PO BID 09/21/16 [History] Sennosides/Docusate Sodium [Senna Plus Tablet] 2 tab PO BID 09/21/16 [History] buPROPion [Wellbutrin] 150 mg PO TID 09/21/16 [History] Past Medical History HEENT History: Reports: Hard of Hearing, Impaired Vision Cardiovascular History: Reports: High Cholesterol, Hypertension Respiratory History: Reports: Asthma, PE Gastrointestinal History: Reports: Bowel Obstruction, Cholelithiasis, GERD CARE DIRECTOR RN History: Reports: , Other (See Below) Other OB/BYN History: uterine cancer 2 years ago, breast biopsy (cyst) Musculoskeletal History: Reports: Arthritis, Osteoarthritis Neurological History: Reports: Seizure, TIA Psychiatric History: Reports: Bipolar, Depression Other Psychiatric History: adjustment disorder Endocrine/Metabolic History: Reports: Hypothyroidism Hematologic History: Reports: Anemia, Blood Transfusion(s) Oncologic (Cancer) History: Reports: Uterine Other Oncologic History: endometrial adenocarcinoma Dermatologic History: Reports: Psoriasis - Infectious Disease History Infectious Disease History: Reports: Chicken Pox - Past Surgical History GI Surgical History: Reports: Hernia Repair/Other, Lysis of Adhesions, Other ( See Below) Female Surgical History: Reports: Hysterectomy Musculoskeletal Surgical History: Reports: Arthroscopic Knee, Knee Replacement, Other (See Below) Oncologic Surgical History: Reports: Biopsy of Breast Social & Family History - Family History Family Medical History: Noncontributory - Tobacco Use Smoking Status *Q: Unknown Ever Smoked Years of Tobacco use: 12 Used Tobacco, but Quit: Yes Month Tobacco Last Used: 20 Second Hand Smoke Exposure: No - Caffeine Use Caffeine Use: Reports: Coffee Other Caffeine Use: 3 cans per day - Alcohol Use Days Per Week of Alcohol Use: 0 Number of Drinks Per Day: 1 Total Drinks Per Week: 0 - Recreational Drug Use Recreational Drug Use: No - Living Situation & Occupation Living situation: Reports: Assisted Living ED ROS GENERAL - Review of Systems Review Of Systems: See Below Constitutional: Denies: Fever, Chills Respiratory: Denies: Shortness of Breath, Wheezing Cardiovascular: Denies: Chest Pain GI/Abdominal: Reports: Anorexia, Diarrhea. Denies: Abdominal Pain, Black Stool , Bloody Stool : Denies: Dysuria ED EXAM, GI/ABD - Physical Exam Exam: See Below Exam Limited By: No Limitations General Appearance: Alert, WD/WN, No Apparent Distress Neck: Normal Inspection, Supple, Non-Tender, Full Range of Motion. No: Lymphadenopathy (R), Lymphadenopathy (L) Respiratory/Chest: No Respiratory Distress, Lungs Clear, Normal Breath Sounds. No: Crackles, Rhonchi, Wheezing Cardiovascular: Regular Rate, Rhythm GI/Abdominal Exam: Normal Bowel Sounds, Soft, Non-Tender, Distended Neurological: Alert, Normal Cognition Psychiatric: Normal Affect, Normal Mood Skin Exam: Warm, Dry, Intact Course - Vital Signs Last Recorded V/S: Last Vital Signs Temp 36.7 C 09/21/16 17:02 Pulse 88 09/21/16 18:08 Resp 15 09/21/16 17:02 BP 124/66 09/21/16 18:08 Pulse Ox 98 09/21/16 18:08 - Orders/Labs/Meds Labs: Laboratory Tests 09/21/16 09/21/16 09/21/16 Range/Units 18:01 18:01 18:01 WBC 11.2 H (4.5-11.0) K/uL RBC 4.75 (3.30-5.50) M/uL Hgb 14.6 (12.0-15.0) g/dL Hct 42.0 (36.0-48.0) % MCV 88 (80-98) fL MCH 31 (27-31) pg MCHC 35 (32-36) % Plt Count 311 (150-400) K/uL Neut % (Auto) 77 H (36-66) % Lymph % (Auto) 10 L (24-44) % [place] % (Auto) 10 H (2-6) % Eos % (Auto) 2 (2-4) % Baso % (Auto) 0 (0-1) % Sodium 133 L (140-148) mmol/L Potassium 3.5 L (3.6-5.2) mmol/L Chloride 101 (100-108) mmol/L Carbon Dioxide 23 (21-32) mmol/L Anion Gap 12.5 (5.0-14.0) mmol/L BUN 9 D (7-18) mg/dL Creatinine 1.1 H (0.6-1.0) mg/dL Est Cr Clr Drug Dosing 58.81 mL/min Estimated GFR (MDRD) 51 L (>60) Glucose 86 (74-106) mg/dL Calcium 9.4 (8.5-10.1) mg/dL Total Bilirubin 0.5 (0.2-1.0) mg/dL AST 27 (15-37) U/L ALT 45 D (12-78) U/L Alkaline Phosphatase 81 (46-116) U/L Total Protein 6.5 (6.4-8.2) g/dL Albumin 3.3 L (3.4-5.0) g/dL Globulin 3.2 (2.3-3.5) g/dL Albumin/Globulin Ratio 1.0 L (1.2-2.2) Amylase 20 L (25-115) U/L Lipase 172 (73-393) U/L Urine Color Urine Appearance Urine pH (4.5-8.0) Ur Specific [place] (1.008-1.030) Urine Protein (NEGATIVE) mg/dL Urine Glucose (UA) (NEGATIVE) mg/dL Urine Ketones (NEGATIVE) mg/dL Urine Occult Blood (NEGATIVE) Urine Nitrite (NEGATIVE) Urine Bilirubin (NEGATIVE) Urine Urobilinogen (NORMAL) mg/dL Ur Leukocyte Esterase (NEGATIVE) Urine RBC (0-5) Urine WBC (0-5) Ur Epithelial Cells Amorphous Sediment Urine Bacteria Urine Mucus 09/21/16 Range/Units 18:07 WBC (4.5-11.0) K/uL RBC (3.30-5.50) M/uL Hgb (12.0-15.0) g/dL Hct (36.0-48.0) % MCV (80-98) fL MCH (27-31) pg MCHC (32-36) % Plt Count (150-400) K/uL Neut % (Auto) (36-66) % Lymph % (Auto) (24-44) % [place] % (Auto) (2-6) % Eos % (Auto) (2-4) % Baso % (Auto) (0-1) % Sodium (140-148) mmol/L Potassium (3.6-5.2) mmol/L Chloride (100-108) mmol/L Carbon Dioxide (21-32) mmol/L Anion Gap (5.0-14.0) mmol/L BUN (7-18) mg/dL Creatinine (0.6-1.0) mg/dL Est Cr Clr Drug Dosing mL/min Estimated GFR (MDRD) (>60) Glucose (74-106) mg/dL Calcium (8.5-10.1) mg/dL Total Bilirubin (0.2-1.0) mg/dL AST (15-37) U/L ALT (12-78) U/L Alkaline Phosphatase (46-116) U/L Total Protein (6.4-8.2) g/dL Albumin (3.4-5.0) g/dL Globulin (2.3-3.5) g/dL Albumin/Globulin Ratio (1.2-2.2) Amylase (25-115) U/L Lipase (73-393) U/L Urine Color Yellow Urine Appearance Slightly cloudy Urine pH 7.0 (4.5-8.0) Ur Specific [place] 1.010 (1.008-1.030) Urine Protein Negative (NEGATIVE) mg/dL Urine Glucose (UA) Normal (NEGATIVE) mg/dL Urine Ketones Negative (NEGATIVE) mg/dL Urine Occult Blood Negative (NEGATIVE) Urine Nitrite Negative (NEGATIVE) Urine Bilirubin Negative (NEGATIVE) Urine Urobilinogen Normal (NORMAL) mg/dL Ur Leukocyte Esterase Negative (NEGATIVE) Urine RBC 0-5 (0-5) Urine WBC 0-5 (0-5) Ur Epithelial Cells Few Amorphous Sediment Not seen Urine Bacteria Many Urine Mucus Few - Re-Assessments/Exams Free Text/Narrative Re-Assessment/Exam: 09/21/16 20:25 evaluated on arrival to ER. No distress no complaints. Care give with pt expressed concerns regarding weight loss and ABD distention and also that She had vomit on her shirt earlier today. Pt adamantly denies that she is vomiting. In the note from the nursing staff they also suspect that she is self inducing emesis. Pt denies AND pain or nausea. She did tell me she had not voided urine in 2 days but denies feeling the sensation that she needs to urinate and she was able to provide a urine sample without difficulty. UA was non-remarkable she did have bacteria but no nitrates nor WBC. Departure - Departure Time of Disposition: 19:42 Disposition: Home, Self-Care 01 Condition: Good Clinical Impression: Abdominal distension, gaseous Vomiting Qualifiers: Vomiting type: unspecified Vomiting Intractability: non-intractable Nausea presence: without nausea Qualified Code(s): R11.11 - Vomiting without nausea - Discharge Information Instructions: Nausea, Adult Referrals: Demetris Shore MD [Primary Care Provider] - Forms: ED Department Discharge Additional Instructions: addition of Boost three times per day monitor garbage can for vomit continue with planned follow-up with primary care provider
== END 2016-09-21 20:00 | disposition home or self-care (01) ==
LOC: JP.ED 16:30
DX: R14.0 Abdominal distension (gaseous) (principal); R11.11 Vomiting without nausea; I10 Essential (primary) hypertension; E78.00 Pure hypercholesterolemia, unspecified; J45.909 Unspecified asthma, uncomplicated; K21.9 Gastro-esophageal reflux disease without esophagitis; F31.9 Bipolar disorder, unspecified; E03.9 Hypothyroidism, unspecified; Z85.42 Personal history of malignant neoplasm of other parts of uterus; Z90.710 Acquired absence of both cervix and uterus; Z96.659 Presence of unspecified artificial knee joint; Z79.01 Long term (current) use of anticoagulants; Z98.890 Other specified postprocedural states; Z79.899 Other long term (current) drug therapy; Z88.8 Allergy status to other drugs, medicaments and biological substances; Z91.048 Other nonmedicinal substance allergy status; Z86.73 Personal history of transient ischemic attack (TIA), and cerebral infarction without residual deficits; Z86.711 Personal history of pulmonary embolism
CPT/HCPCS: 36415; 80053; 81001; 82150; 83690; 85025; 99282; 99284

== ENCOUNTER 2016-10-01 06:26 | Day surgery (SDC) | payer MEDICARE, MEDICAID ==
[2016-10-01] MEDS ORDERED: Dextrose 5%-Lactated Ringers 1,000 ML IV SCH (07:00)
[2016-10-01] MEDS ORDERED: Propofol 200 MG/20 ML SDV ONE (07:18)
[2016-10-01] MEDS ORDERED: Glycopyrrolate 0.2 MG/ML 2 ML SDV IVPUSH ONE (07:45)
[2016-10-01 09:57] VITALS: BP 150/79
--- NOTE | 2016-10-07 13:39 | OR ---
DATE OF PROCEDURE: 10/01/2016 PREOPERATIVE DIAGNOSIS: Weight loss with a decreasing oral intake. POSTOPERATIVE DIAGNOSES: 1. Diffuse gastritis with scattered antral erosions. 2. Dilated esophagus. OPERATIVE PROCEDURE: Upper GI endoscopy with biopsies of antrum for CLOtest. ANESTHESIA: IV sedation. INDICATIONS FOR PROCEDURE: This is a 61-year-old female presenting with some increasingly poor oral intake along with weight loss. 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 Presently, she is on 40 mg of Nexium daily. Plan is to proceed with an upper GI endoscopy with biopsies as indicated. Potential risks including bleeding and perforation were discussed, and the patient wishes to proceed. DETAILS OF PROCEDURE: The patient was taken to the operating room and placed in a left lateral decubitus position. IV sedation was administered, after which the upper GI endoscope was passed orally through the length of the esophagus into the stomach with retroflexion view of the fundus, and thereafter through the pyloric channel and into the duodenum to the junction of the third and fourth portions. Findings included normal hypopharynx, larynx, upper esophageal sphincter. The esophageal body itself was somewhat dilated, but otherwise had little in the way of inflammation. The patient did have a moderate sized hiatal hernia within the stomach. There was more or less diffuse redness with some scattered erosions in the antrum. Pyloric channel was widely open and the duodenum to the junction of the third and fourth portions was unremarkable. At this point, biopsies were obtained from the antrum and sent for CLOtest for H. pylori. Minimal bleeding from the biopsy sites was seen and the procedure was then concluded with withdrawal of the scope. The plan at this point was initially to add Carafate. We were notified by the patient's residence [facility] that would not be readily available due to shortages and we then opted to use Gaviscon 2 tablespoons q.i.d. between meals. If this is unsuccessful, one might consider adding something like Megace to stimulate appetite. Should the CLOtest be positive, we will contact the patient's residence regarding an antibiotic course for the H. pylori should that be positive. Demetris Shore MD /[id number]
== END 2016-10-01 10:30 | disposition home or self-care (01) ==
LOC: JP.SDS 06:26
PROVIDERS: ATTEND Surgery
DX: K25.9 Gastric ulcer, unspecified as acute or chronic, without hemorrhage or perforation (principal); K29.70 Gastritis, unspecified, without bleeding; F03.90 Unspecified dementia, unspecified severity, without behavioral disturbance, psychotic disturbance, mood disturbance, and anxiety; K22.8 Other specified diseases of esophagus
CPT/HCPCS: 36415; 43239; 85610; 87081; J2704; J7042; J3490

== ENCOUNTER 2016-10-05 12:37 | Emergency (ER) | payer MEDICARE, MEDICAID ==
[2016-10-05 13:13] VITALS: BP 141/76
--- NOTE | 2016-10-05 13:33 | EDM.PDOC ---
ED HPI GENERAL MEDICAL PROBLEM - General Chief Complaint: General Stated Complaint: MEDICAL Time Seen by Provider: 10/05/16 13:28 Source of Information: Reports: Patient, Old Records, Other (staff member provides most of the history) History Limitations: Reports: Altered Mental Status - History of Present Illness INITIAL COMMENTS - FREE TEXT/NARRATIVE: Pt from [facility]. Presents with concerns about pt declining status. Pt has lost a significant amount of weight in the last year. Suffers from anorexia and poor appetite with multiple comorbidities. Did see primary care last month and her psychiatrist about 2 weeks ago. She was seen in the [place] 2 days ago. Release signed for records. 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 Staff note that this morning pt seemed more weak upon awakening. Pt denies pain. Verbalizes sporadically. Does have extrapyramidal movements noted with mouth and feet. Is cooperative but not a very good historian. Staff does not bring a current med list but does have the list given by the ER. Onset: Gradual Duration: Getting Worse Improves with: Reports: None Worsens with: Reports: None Associated Symptoms: Reports: Confusion, Loss of Appetite - Related Data Allergies Allergy/AdvReac Type Severity Reaction Status Date / Time haloperidol lactate Allergy Unknown unknown Verified 10/01/16 07:39 [From Haldol] simvastatin [From Zocor] Allergy Unknown unknown Verified 10/01/16 07:39 *dust Allergy Unknown Facial Uncoded 10/01/16 07:39 Swelling cats Allergy Unknown Facial Uncoded 10/01/16 07:39 Swelling Home Meds: Home Meds Atenolol [Tenormin] 50 mg PO DAILY 11/25/12 [History] Lovastatin [Mevacor] 40 mg PO BEDTIME 11/25/12 [History] Multivitamin [Multivitamins] 1 tab PO DAILY 11/25/12 [History] Trihexyphenidyl [Artane] 5 mg PO BID 11/25/12 [History] traMADol HCl [Ultram] 50 mg PO Q6H PRN 11/25/12 [History] Acetaminophen [Tylenol] 650 mg PO Q4H PRN 04/12/15 [History] Esomeprazole [NexIUM] 40 mg PO BID 04/12/15 [History] Ondansetron [Zofran ODT] 4 mg PO Q4H PRN 04/12/15 [History] Oxybutynin 5 mg PO BID 11/02/15 [History] traZODone HCl [Trazodone HCl] 50 mg PO BEDTIME 11/29/15 [History] Warfarin [Coumadin] 7.5 mg PO ASDIRECTED 12/02/15 [History] Warfarin [Coumadin] 10 mg PO ASDIRECTED 12/02/15 [History] [place] Carbonate 300 mg PO DAILY cap 05/15/16 [Rx] Bisacodyl [Dulcolax] 10 mg RECTAL ASDIRECTED 09/21/16 [History] Fluocinolone Acetonide [Synalar 0.01% Top Soln] 1 film TOP ASDIRECTED 09/21/16 [ History] Levothyroxine 112 mcg PO DAILY 09/21/16 [History] Melatonin 5 mg PO BEDTIME 09/21/16 [History] Sennosides/Docusate Sodium [Senna Plus Tablet] 2 tab PO BID 09/21/16 [History] buPROPion [Wellbutrin] 150 mg PO TID 09/21/16 [History] Benztropine Mesylate 2 mg PO BEDTIME 10/01/16 [History] Past Medical History HEENT History: Reports: Hard of Hearing, Impaired Vision Cardiovascular History: Reports: Blood Clots/VTE/DVT, High Cholesterol, Hypertension Respiratory History: Reports: Asthma, PE Gastrointestinal History: Reports: Bowel Obstruction, Cholelithiasis, Chronic Diarrhea, GERD Genitourinary History: Reports: Urinary Incontinence [employer] History: Reports: , Other (See Below) Other OB/BYN History: uterine cancer 2 years ago, breast biopsy (cyst) Musculoskeletal History: Reports: Arthritis, Osteoarthritis Neurological History: Reports: Seizure, TIA Psychiatric History: Reports: Anxiety, Bipolar, Depression Other Psychiatric History: adjustment disorder Endocrine/Metabolic History: Reports: Hypothyroidism Hematologic History: Reports: Anemia, Blood Transfusion(s) Oncologic (Cancer) History: Reports: Uterine Other Oncologic History: endometrial adenocarcinoma Dermatologic History: Reports: Psoriasis - Infectious Disease History Infectious Disease History: Reports: Other (See Below) Other Infectious Disease History: Unknown - Past Surgical History HEENT Surgical History: Reports: None Cardiovascular Surgical History: Reports: None Respiratory Surgical History: Reports: None GI Surgical History: Reports: Hernia Repair/Other, Lysis of Adhesions, Other ( See Below) Other GI Surgeries/Procedures: release of SBO Female Surgical History: Reports: Hysterectomy Endocrine Surgical History: Reports: None Neurological Surgical History: Reports: None Musculoskeletal Surgical History: Reports: Arthroscopic Knee, Knee Replacement, Other (See Below) Oncologic Surgical History: Reports: Biopsy of Breast Dermatological Surgical History: Reports: None Social & Family History - Family History Family Medical History: Noncontributory - Tobacco Use Smoking Status *Q: Never Smoker Years of Tobacco use: 12 Packs/Tins Daily: 1 Used Tobacco, but Quit: Yes Month Tobacco Last Used: 1996 Second Hand Smoke Exposure: No - Caffeine Use Caffeine Use: Reports: Coffee Other Caffeine Use: 3 cans per day - Alcohol Use Days Per Week of Alcohol Use: 0 Number of Drinks Per Day: 1 Total Drinks Per Week: 0 - Recreational Drug Use Recreational Drug Use: Yes - Living Situation & Occupation Living situation: Reports: Assisted Living ED ROS GENERAL - Review of Systems Review Of Systems: See Below Constitutional: Reports: Weakness, Fatigue, Weight Loss HEENT: Reports: No Symptoms Respiratory: Reports: No Symptoms Cardiovascular: Reports: No Symptoms GI/Abdominal: Reports: Anorexia : Reports: No Symptoms Musculoskeletal: Reports: No Symptoms Skin: Reports: No Symptoms Neurological: Reports: Confusion ED EXAM, GENERAL - Physical Exam Exam: See Below Exam Limited By: Altered Mental Status General Appearance: Alert, WD/WN, No Apparent Distress, Thin Ears: Normal External Exam, Normal Canal, Hearing Grossly Normal, Normal TMs Nose: Normal Inspection, Normal Mucosa, No Blood Head: Atraumatic, Normocephalic Neck: Normal Inspection, Supple, Non-Tender, Full Range of Motion Respiratory/Chest: No Respiratory Distress, Lungs Clear, Normal Breath Sounds, No Accessory Muscle Use, Chest Non-Tender Cardiovascular: Normal Peripheral Pulses, Regular Rate, Rhythm, No Edema, No Gallop, No JVD, No Murmur, No Rub GI/Abdominal: Normal Bowel Sounds, Soft, Non-Tender, No Organomegaly, No Distention, No Abnormal Bruit, No Mass Extremities: Normal Inspection, Normal Range of Motion, Non-Tender, Normal Capillary Refill, No Pedal Edema Neurological: Other (follows commands but answers slowly and then spontaneously) Psychiatric: Normal Affect, Normal Mood Skin Exam: Warm, Dry, Intact, Normal Color, No Rash Course - Vital Signs Last Recorded V/S: Last Vital Signs Temp 97.9 F 10/05/16 13:24 Pulse 83 10/05/16 13:24 Resp 16 10/05/16 13:24 BP 141/76 H 10/05/16 13:24 Pulse Ox 96 10/05/16 13:24 - Orders/Labs/Meds Orders: Active Orders 24 hr Category Date Time Status UA W/MICROSCOPIC [URIN] Stat Lab 10/05/16 13:27 Uncollected Departure - Departure Time of Disposition: 15:13 Disposition: Home, Self-Care 01 Condition: Good Clinical Impression: Anorexia - Discharge Information Forms: ED Department Discharge Additional Instructions: ER notes and tests reviewed from 09/02. Staff reports that she did have an endoscopy last week. Pt unable to give us a urine sample today. Discussed that pt may need a carotid duplex but would be scheduled by her primary care provider. Discussed foods high in protein and calories. Will need to see if they can get dentures fitted for her mouth since significant weight loss. May benefit from speech therapy if swallowing issues. Staff to update med list to stop Fluconazole, stop Gaviscon, Stop Ondansetron, stop Omeprazole, stop Tramadol, stop Oxybutynin, stop Melatonin. Psych meds to be managed by her psychiatrist. Staff voices understanding of plan. Pt agreeable today. - Problem List & Annotations (1) Anorexia SNOMED Code(s): 87117673 Code(s): R63.0 - ANOREXIA Status: Acute Priority: Medium Current Visit : Yes - My Orders Last 24 Hours: My Active Orders 10/05/16 13:27 UA W/MICROSCOPIC [URIN] Stat - Assessment/Plan Last 24 Hours: My Active Orders 10/05/16 13:27 UA W/MICROSCOPIC [URIN] Stat
== END 2016-10-05 15:55 | disposition home or self-care (01) ==
LOC: JP.ED 12:37
DX: R63.0 Anorexia (principal); I10 Essential (primary) hypertension; E78.00 Pure hypercholesterolemia, unspecified; J45.909 Unspecified asthma, uncomplicated; F41.9 Anxiety disorder, unspecified; K21.9 Gastro-esophageal reflux disease without esophagitis; F32.9 Major depressive disorder, single episode, unspecified; E03.9 Hypothyroidism, unspecified; M19.90 Unspecified osteoarthritis, unspecified site; Z86.73 Personal history of transient ischemic attack (TIA), and cerebral infarction without residual deficits; Z98.890 Other specified postprocedural states; Z96.659 Presence of unspecified artificial knee joint; Z85.42 Personal history of malignant neoplasm of other parts of uterus; Z79.01 Long term (current) use of anticoagulants; Z79.899 Other long term (current) drug therapy; Z90.710 Acquired absence of both cervix and uterus; Z91.09 Other allergy status, other than to drugs and biological substances; Z88.8 Allergy status to other drugs, medicaments and biological substances
CPT/HCPCS: 99284; 99285